=== PATIENT | female | born 1970 | race African-American/Black ===

== ENCOUNTER 2020-10-20 01:50 | Emergency (ER) | payer MEDICARE ==
[2020-10-20] MEDS ORDERED: Sodium Chloride 0.9% 1,000 ML IV ONE (02:03)
[2020-10-20] MEDS ORDERED: Sodium Chloride 0.9% 10 ML Syringe FLUSH PRN (02:03)
[2020-10-20] MEDS ORDERED: Sodium Chloride 0.9% 2.5 ML Syringe FLUSH PRN (02:03)
[2020-10-20] MEDS ORDERED: cloNIDine 0.1 MG Tab PO ONE (02:04)
[2020-10-20] MEDS ORDERED: Meclizine 25 MG Tab PO ONE (02:06)
[2020-10-20] MEDS ORDERED: diphenhydrAMINE 50 MG/ML SDV IVPUSH ONE (02:06)
[2020-10-20] MEDS ORDERED: Prochlorperazine 10 MG in Sodium Chloride 0.9% 50 ML IV ONE (02:06)
[2020-10-20] MEDS ORDERED: Prochlorperazine 10 MG/2 ML SDV ONE (02:10)
[2020-10-20] MEDS ORDERED: Prochlorperazine 10 MG/2 ML SDV IVPUSH ONE (02:13)
--- NOTE | 2020-10-20 02:46 | CT ---
INDICATION: Vertigo TECHNIQUE: CT Head without i.v. contrast. Coronal and sagittal reformats were obtained. COMPARISON: None FINDINGS: CSF space: The ventricles are normal for age. Brain: No evidence of mass, acute infarction or hemorrhage is seen. No mass-effect or midline shift is seen. The brain parenchyma is otherwise normal in appearance with preservation of the rome-white matter junction. Calvarium: The visualized paranasal sinuses are well aerated. The mastoid air cells are clear. The visualized orbits are grossly unremarkable. The calvarium is unremarkable in appearance with no fractures identified. IMPRESSION: 1. No evidence of acute infarction, intracranial hemorrhage, or mass-effect seen. Please note that all CT scans at this facility use dose modulation, iterative reconstruction, and/or weight-based dosing when appropriate to reduce radiation dose to as low as reasonably achievable. Dictated by: Lenin Doty MD @ 10/20/2020 02:44:36 (Electronically Signed)
[2020-10-20 03:00] LABS: BLOOD UREA NITROGEN,BUN 20 mg/dL (7.0-18.0); CARBON DIOXIDE,CO2 28.2 mmol/L (21.0-32.0); CHLORIDE,CL 104 mmol/L (98-107); GLUCOSE RANDOM 107 mg/dL (74-106); POTASSIUM,K 4.1 mmol/L (3.5-5.1); SODIUM,NA 139 mmol/L (136-145)
--- NOTE | 2020-10-20 03:43 | EDM.PDOC ---
ED HPI GENERAL MEDICAL PROBLEM - General Chief Complaint: Cardiovascular Problem Stated Complaint: HEADACHE Time Seen by Provider: 10/20/20 03:24 - History of Present Illness INITIAL COMMENTS - FREE TEXT/NARRATIVE: HISTORY AND PHYSICAL: History of present illness: This is a 49-year-old female with a history significant for hypertension and vertigo who presents ER today complaining of recurrence of her vertigo. Patient reports that she sat up and felt the room was spinning. She reports that the spinning persisted which is typical of when she has inflammation in her inner ear. Patient came to the ER secondary to the sensation of nausea and vertigo. Patient denies any other symptomatology. Patient has any recent fevers, shakes, chills, vomiting, diarrhea, dysuria, frequency, urgency, chest pain, shortness of breath, lower extremity edema. Patient denies any calf tenderness or swelling. Patient reports she does have a history of a PE in the past. Patient reports that she does have a history of hypertension and is currently on 3 different medications. Patient reports that she has been compliant with her medications but it is always elevated. Patient reports her blood pressure fluctuates and that her doctor the been trying to control it. Patient denies any weakness to her upper or lower extremities. Patient denies any slurring her speech. Patient has any double vision. Patient denies any blurred vision. Review of systems: As per history of present illness and below otherwise all systems reviewed and negative. Past medical history: As per history of present illness and as reviewed below otherwise noncontributory. Surgical history: As per history of present illness and as reviewed below otherwise noncontributory. Social history: No reported history of drug or alcohol abuse. Family history: As per history of present illness and as reviewed below otherwise noncontributory. Physical exam: This patient was seen and evaluated during the 2019 SARS-CoV-2 novel coronavirus pandemic period. Community viral transmission is ongoing at time of this encounter and the emergency department is operating under pandemic response procedures. Constitutional: Patient is oriented to person, place, and time. Appears well- developed and well-nourished. No distress. HEENT: Moist mucous membranes Head: Normocephalic and atraumatic Eyes: Right eye exhibits no discharge. Left eye exhibits no discharge. No scleral icterus Neck: Normal range of motion. No tracheal deviation present. Cardiovascular: Normal rate and regular rhythm. Pulmonary: Effort normal, no respiratory distress. Abdominal: No distention Musculoskeletal: Normal range of motion Neurologic: Alert and oriented to person, place and time. Skin: [place], warm and dry. Psychiatric: Normal mood and affect. Behavior is normal. Judgment and thought content normal. Nursing note and vital signs have been reviewed Neuro: A&Ox3. Cranial nerves II-XII grossly intact, 5/5 strength to bilateral upper and lower extremities, sensation intact to bilateral upper and lower extremities, no nystagmus, PERRLA, EOMI, normal speech, proprioception intact to bilateral lower extremities, normal finger to nose test, gait normal. Patient's panic membranes are without any erythema, fluid, bulging. Diagnostics: CBC, CMP, troponin all within normal limits. CT of head without contrast normal EKG: As interpreted by ER physician: Gregory: Nonspecific ST-T wave abnormalities Normal axis No evidence of ST elevation MT Sinus tachycardia with a heart rate of 102 Therapeutics: Meclizine 25 mg p.o. Compazine 10 mg IV Benadryl 25 mg IV NSS x1 L Assessment and plan: This is a 49-year-old female who presents ER today secondary to vertigo. Patient reports that she has had similar episodes in the past. Patient reports that she has been told that she has inflammation in her ear to her ear whenever this occurs. Patient reports that the vertigo today is identical to prior episodes of her vertigo. Of note, upon arrival to the ED the patient's blood pressure was markedly elevated. Here in the ED the patient was given meclizine, Compazine, Benadryl and NSS to assist with her vertigo. Patient was also given clonidine 0.2 mg p.o. 3:30 AM: Upon reevaluation, the patient is resting comfortably and reports that her vertigo has completely resolved. Patient's labs and ER work-up is been unremarkable. Patient will be discharged home with a prescription for meclizine and instructions to follow-up with her primary care physician for further BP evaluation. Reassessment at the time of disposition demonstrates that the patient is in no acute distress. The patient has remained stable throughout the entire ED visit and is without objective evidence for acute process requiring urgent intervention or hospitalization. The patient is stable for discharge, counseling is provided as documented above, discussed symptomatic treatment and specific conditions for return. I have spoken with the patient/caregiver and discussed todays findings, in addition to providing specific details for the plan of care. Questions are answered and there is agreement with the plan. Definitive disposition and diagnosis as appropriate pending reevaluation and review of above. head area Pain Score (Numeric/FACES): 1 - Related Data Allergies Allergy/AdvReac Type Severity Reaction Status Date / Time No Known Allergies Allergy Verified 10/20/20 01:58 Home Meds: Home Meds Bictegrav/Emtricit/Tenofov Ala [Biktarvy 50-200-25 mg Tablet] 1 tab PO DAILY 10/20/20 [History] Meclizine [Antivert] 25 mg PO TID PRN #20 tab 10/20/20 [Rx] Past Medical History - Infectious Disease History Infectious Disease History: Reports: HIV-Human Immunodeficiency Virus - Past Surgical History GI Surgical History: Reports: Cholecystectomy Female Surgical History: Reports: Hysterectomy Social & Family History - Tobacco Use Tobacco Use Status *Q: Never Tobacco User - Recreational Drug Use Recreational Drug Use: No ED ROS GENERAL - Review of Systems Review Of Systems: See Below ED EXAM, GENERAL - Physical Exam Exam: See Below Course - Vital Signs Last Recorded V/S: Last Vital Signs Temp 97.6 F 10/20/20 03:57 Pulse 85 10/20/20 03:57 Resp 18 10/20/20 03:57 BP 119/60 10/20/20 03:57 Pulse Ox 97 10/20/20 03:57 - Orders/Labs/Meds Orders: Active Orders 24 hr Category Date Time Status Saline Lock Insert [OM.PC] Stat Oth 10/20/20 02:03 Ordered Labs: Laboratory Tests 10/20/20 10/20/20 Range/Units 02:10 02:10 WBC 5.52 (4.0-11.0) K/uL RBC 4.60 (4.30-5.90) M/uL Hgb 14.5 (12.0-16.0) g/dL Hct 42.2 (36.0-46.0) % MCV 91.7 (80.0-98.0) fL MCH 31.5 (27.0-32.0) pg MCHC 34.4 (31.0-37.0) g/dL RDW Std Deviation 40.9 (28.0-62.0) fl RDW Coeff of Alexa 12 (11.0-15.0) % Plt Count 217 (150-400) K/uL MPV 11.70 (7.40-12.00) fL Neut % (Auto) 47.8 L (48.0-80.0) % Lymph % (Auto) 39.5 (16.0-40.0) % [place] % (Auto) 9.8 (0.0-15.0) % Eos % (Auto) 2.5 (0.0-7.0) % Baso % (Auto) 0.4 (0.0-1.5) % Neut # (Auto) 2.6 (1.4-5.7) K/uL Lymph # (Auto) 2.2 (0.6-2.4) K/uL [place]igo # (Auto) 0.5 (0.0-0.8) K/uL Eos # (Auto) 0.1 (0.0-0.7) K/uL Baso # (Auto) 0.0 (0.0-0.1) K/uL Sodium 139 (136-145) mmol/L Potassium 4.1 (3.5-5.1) mmol/L Chloride 104 (98-107) mmol/L Carbon Dioxide 28.2 (21.0-32.0) mmol/L BUN 20 H (7.0-18.0) mg/dL Creatinine 1.2 H (0.6-1.0) mg/dL Est Cr Clr Drug Dosing 59.27 mL/min Estimated GFR (MDRD) 57.9 ml/min Glucose 107 H (74-106) mg/dL Calcium 9.2 (8.5-10.1) mg/dL Total Bilirubin 0.3 (0.2-1.0) mg/dL AST 16 (15-37) IU/L ALT 20 (14-63) IU/L Alkaline Phosphatase 70 (46-116) U/L Troponin I < 0.050 (0.000-0.056) ng/mL Total Protein 8.1 (6.4-8.2) g/dL Albumin 3.7 (3.4-5.0) g/dL Globulin 4.4 H (2.6-4.0) g/dL Albumin/Globulin Ratio 0.8 L (0.9-1.6) Meds: Medications Discontinued Medications Generic Name Dose Route Start Last Admin Trade Name Freq PRN Reason Stop Dose Admin Clonidine HCl 0.2 mg 10/20/20 02:04 10/20/20 02:11 Clonidine 0.1 Mg Tab PO 10/20/20 02:05 0.2 mg ONETIME ONE Administration Diphenhydramine HCl 25 mg 10/20/20 02:06 10/20/20 02:12 Diphenhydramine 50 Mg/Ml Sdv IVPUSH 10/20/20 02:07 25 mg ONETIME ONE Administration Sodium Chloride 1,000 mls @ 999 mls/hr 10/20/20 02:03 10/20/20 02:13 Normal Saline IV 10/20/20 03:03 999 mls/hr .Bolus ONE Administration Prochlorperazine Edisylate 10 52 mls @ 150 mls/hr 10/20/20 02:06 10/20/20 02:14 mg/ Sodium Chloride IV 10/20/20 02:26 Not Given ONETIME ONE Meclizine HCl 25 mg 10/20/20 02:06 10/20/20 02:12 Meclizine 25 Mg Tab PO 10/20/20 02:07 25 mg ONETIME ONE Administration Prochlorperazine Edisylate Confirm 10/20/20 02:10 10/20/20 02:14 Prochlorperazine 10 Mg/2 Ml Sdv Administered 10/20/20 02:11 Not Given Dose 10 mg .ROUTE .STK-MED ONE Prochlorperazine Edisylate 10 mg 10/20/20 02:13 10/20/20 02:13 Prochlorperazine 10 Mg/2 Ml Sdv IVPUSH 10/20/20 02:14 10 mg ONETIME ONE Administration Sodium Chloride 10 ml 10/20/20 02:03 10/20/20 02:12 Sodium Chloride 0.9% 10 Ml Syringe FLUSH 10 ml ASDIRECTED PRN Administration Keep Vein Open Sodium Chloride 2.5 ml 10/20/20 02:03 10/20/20 02:12 Sodium Chloride 0.9% 2.5 Ml Syringe FLUSH 2.5 ml ASDIRECTED PRN Administration Keep Vein Open Departure - Departure Time of Disposition: 03:41 Disposition: Home, Self-Care 01 Condition: Good Clinical Impression: Hypertension, Vertigo Prescriptions: Meclizine [Antivert] 25 mg PO TID PRN #20 tab PRN Reason: Dizziness Instructions: Vertigo, Managing Your Hypertension, Hypertension, Adult Referrals: PCP,None [Primary Care Provider] - Forms: ED Department Discharge Additional Instructions: You were seen and evaluated in the ER today secondary to vertigo. Your blood pressure is also noted to be markedly elevated. In the ED you were given clonidine to assist your blood pressure and that appears to have significantly improved your blood pressure while you have been here. We have also treated your vertigo in the ER with meclizine, Compazine, Benadryl, and IV fluids. At this time, it appears that your vertigo has significantly improved with the medications and with improvement in your blood pressure. The blood tests and CT scan that we have obtained were all within normal limits. Please make an appointment to see your doctor within the next week for reevaluation of your blood pressure and symptoms. You will be sent home with a prescription for meclizine 25 mg to take 3 times a day as needed for vertigo. The following information is given to patients seen in the emergency department who are being discharged to home. This information is to outline your options for follow-up care. We provide all patients seen in our emergency department with a follow-up referral. The need for follow-up, as well as the timing and circumstances, are variable depending upon the specifics of your emergency department visit. If you don't have a primary care physician on staff, we will provide you with a referral. We always advise you to contact your personal physician following an emergency department visit to inform them of the circumstance of the visit and for follow-up with them and/or the need for any referrals to a consulting specialist. The emergency department will also refer you to a specialist when appropriate. This referral assures that you have the opportunity for follow-up care with a specialist. All of these measure are taken in an effort to provide you with optimal care, which includes your follow-up. Under all circumstances we always encourage you to contact your private physician who remains a resource for coordinating your care. When calling for follow-up care, please make the office aware that this follow-up is from your recent emergency room visit. If for any reason you are refused follow-up, please contact the [facility] Emergency Department at and asked to speak to the emergency department charge nurse. [facility] [address] [place] [address] [facility] [address] [place] [address] Sepsis Event Note (ED) - Evaluation Sepsis Screening Result: No Definite Risk - Focused Exam Vital Signs: Vital Signs Temp Pulse Resp BP BP Pulse Ox 10/20/20 03:57 97.6 F 85 18 119/60 97 10/20/20 03:24 90 18 111/66 95 10/20/20 02:38 99 201/113 H 97 10/20/20 02:11 93 178/97 H 178/97 H 97 10/20/20 02:03 106 H 208/118 H 100 10/20/20 01:56 97.7 F 102 H 18 223/140 H 98 - My Orders Last 24 Hours: My Active Orders 10/20/20 02:03 Saline Lock Insert [OM.PC] Stat - Assessment/Plan Last 24 Hours: My Active Orders 10/20/20 02:03 Saline Lock Insert [OM.PC] Stat
== END 2020-10-20 03:57 | disposition home or self-care (01) ==
LOC: MW.ED 01:50
DX: I10 Essential (primary) hypertension (principal); R00.0 Tachycardia, unspecified; B20 Human immunodeficiency virus [HIV] disease; Z79.899 Other long term (current) drug therapy
CPT/HCPCS: 36415; 70450; 80053; 84484; 85025; 93005; 96374; 96375; 99284; A9270; J0780; J1200; J7030; 93010; 99283

== ENCOUNTER 2020-12-29 08:42 | Emergency (ER) | payer MEDICARE ==
[2020-12-29] MEDS ORDERED: Ketorolac 15 MG/ML SDV IVPUSH ONE (09:16)
[2020-12-29] MEDS ORDERED: Sodium Chloride 0.9% 2.5 ML Syringe FLUSH PRN (09:16)
[2020-12-29] MEDS ORDERED: Ondansetron 4 MG/2 ML SDV IVPUSH ONE (09:16)
[2020-12-29] MEDS ORDERED: Sodium Chloride 0.9% 10 ML Syringe FLUSH PRN (09:16)
[2020-12-29] MEDS ORDERED: Sodium Chloride 0.9% 1,000 ML IV ONE (09:16)
[2020-12-29 09:41] LABS: BLOOD UREA NITROGEN,BUN 17 mg/dL (7.0-18.0); CARBON DIOXIDE,CO2 28.3 mmol/L (21.0-32.0); CHLORIDE,CL 104 mmol/L (98-107); GLUCOSE RANDOM 122 mg/dL (74-106); LIPASE 69 U/L (73-393); POTASSIUM,K 4.1 mmol/L (3.5-5.1); SODIUM,NA 139 mmol/L (136-145)
--- NOTE | 2020-12-29 11:01 | CT ---
INDICATION: Right upper quadrant pain. Status post cholecystectomy. TECHNIQUE: CT abdomen and pelvis without contrast. COMPARISON: None. FINDINGS: Lower chest: Normal heart size. No pericardial effusion. Coronary artery calcifications are noted. Mild elevation of the right hemidiaphragm. Liver: Unenhanced liver appears unremarkable. Spleen: Normal in size. Pancreas: Unenhanced pancreas appears unremarkable. Gallbladder and bile ducts: Cholecystectomy. No significant bile duct dilatation. Kidneys: Unenhanced kidneys appear unremarkable. Specifically, no urinary tract stones or hydroureteronephrosis. Adrenal glands: No adrenal mass or hemorrhage. GI tract: No abnormally dilated bowel to suggest obstruction. Appendix is normal. Vascular structures: Atherosclerotic changes. Normal caliber abdominal aorta. Lymph nodes: No pathologically enlarged lymph nodes are identified. Miscellaneous: No free air. No free fluid. Pelvic Organs: Unremarkable urinary bladder. Hysterectomy. No appreciable adnexal mass. Bones: No acute abnormality. Right proximal femur hardware is partially visualized. L5-S1 disc degeneration. IMPRESSION: 1. No CT evidence of an acute abnormality in the abdomen or pelvis on this unenhanced study. 2. Nonacute findings as noted. Dictated by Scott Garcia MD @ 12/29/2020 11:00:27 AM Please note that all CT scans at this facility use dose modulation, iterative reconstruction, and/or weight-based dosing when appropriate to reduce radiation dose to as low as reasonably achievable. Dictated by: Scott Garcia MD @ 12/29/2020 11:01:00 (Electronically Signed)
--- NOTE | 2020-12-29 11:09 | EDM.PDOC ---
ED HPI GENERAL MEDICAL PROBLEM - General Chief Complaint: Abdominal Pain Stated Complaint: R SIDE PAIN Time Seen by Provider: 12/29/20 09:09 - History of Present Illness INITIAL COMMENTS - FREE TEXT/NARRATIVE: HISTORY AND PHYSICAL: History of present illness: This is a 50-year-old female with a history significant for HIV, status post cholecystectomy who is currently on antiretroviral medications who presents ER today complaining of pain to her right upper quadrant and concerned about her liver. Patient has any recent fevers, shakes, chills, nausea, vomiting, diarrhea, dysuria, frequency, urgency, change in her stool colors. Patient has any melena or bright red blood per rectum. Patient reports that she has been tolerating p.o. solids and liquids well. Patient denies any hematuria or urinary symptoms. Review of systems: As per history of present illness and below otherwise all systems reviewed and negative. Past medical history: As per history of present illness and as reviewed below otherwise noncontribut ory. Surgical history: As per history of present illness and as reviewed below otherwise noncontributory. Social history: No reported history of drug abuse. Family history: As per history of present illness and as reviewed below otherwise noncontributory. Physical exam: This patient was seen and evaluated during the 2019 SARS-CoV-2 novel coronavirus pandemic period. Community viral transmission is ongoing at time of this encounter and the emergency department is operating under pandemic response procedures. Constitutional: Patient is oriented to person, place, and time. Appears well- developed and well-nourished. No distress. HEENT: Moist mucous membranes Head: Normocephalic and atraumatic Eyes: Right eye exhibits no discharge. Left eye exhibits no discharge. No scleral icterus Neck: Normal range of motion. No tracheal deviation present. Cardiovascular: Normal rate and regular rhythm. Pulmonary: Effort normal, no respiratory distress. Abd: Soft, nondistended, no rebound/guarding, no psoas or obturator signs, no tenderness at Mcberney's point, no Lowe's sign. Pt does not present with an exam that would be consistent with an acute surgical abdomen at this time, minimal tenderness palpation right upper quadrant Musculoskeletal: Normal range of motion Neurologic: Alert and oriented to person, place and time. Skin: [place], warm and dry. Psychiatric: Normal mood and affect. Behavior is normal. Judgment and thought content normal. Nursing note and vital signs have been reviewed Diagnostics: CT scan of the abdomen pelvis without contrast reveals no evidence of acute abnormality in the abdomen pelvis. CBC, CMP, urinalysis all within normal limits. Therapeutics: Toradol 15 mg IV with patient reporting significant relief in her pain and discomfort. Assessment and plan: 50-year-old female with a history of HIV status post cholecystectomy who presents ER today complaining of right upper quadrant abdominal pain. Patient's ER work-up is been unremarkable. Patient's pain has improved significantly with the Toradol given in the ED. I have instructed the patient about dietary changes including a bland diet for the next 2 to 3 days and follow-up with her primary care physician for further evaluation. Reassessment at the time of disposition demonstrates that the patient is in no acute distress. The patient has remained stable throughout the entire ED visit and is without objective evidence for acute process requiring urgent intervention or hospitalization. The patient is stable for discharge, counseling is provided as documented above, discussed symptomatic treatment and specific conditions for return. I have spoken with the patient/caregiver and discussed todays findings, in addition to providing specific details for the plan of care. Questions are answered and there is agreement with the plan. Definitive disposition and diagnosis as appropriate pending reevaluation and review of above. RUQ Pain Score (Numeric/FACES): 8 - Related Data Allergies Allergy/AdvReac Type Severity Reaction Status Date / Time No Known Allergies Allergy Verified 12/29/20 09:42 Home Meds: Home Meds Bictegrav/Emtricit/Tenofov Ala [Biktarvy 50-200-25 mg Tablet] 1 tab PO DAILY 10/20/20 [History] Meclizine [Antivert] 25 mg PO TID PRN #20 tab 10/20/20 [Rx] Past Medical History - Infectious Disease History Infectious Disease History: Reports: HIV-Human Immunodeficiency Virus - Past Surgical History GI Surgical History: Reports: Cholecystectomy Female Surgical History: Reports: Hysterectomy ED ROS GENERAL - Review of Systems Review Of Systems: See Below ED EXAM, GENERAL - Physical Exam Exam: See Below Course - Vital Signs Last Recorded V/S: Last Vital Signs Temp 98.4 F 12/29/20 09:15 Pulse 80 12/29/20 09:15 Resp 16 12/29/20 09:15 BP 184/105 H 12/29/20 09:15 Pulse Ox 97 12/29/20 09:15 - Orders/Labs/Meds Orders: Active Orders 24 hr Category Date Time Status Sodium Chloride 0.9% [Saline Flush] Med 12/29/20 09:16 Active 10 ml FLUSH ASDIRECTED PRN Sodium Chloride 0.9% [Saline Flush] Med 12/29/20 09:16 Active 2.5 ml FLUSH ASDIRECTED PRN Saline Lock Insert [OM.PC] Stat Oth 12/29/20 09:16 Ordered Medication Orders Sodium Chloride (Sodium Chloride 0.9% 10 Ml Syringe) 10 ml FLUSH ASDIRECTED PRN PRN Reason: Keep Vein Open Last Admin: 12/29/20 09:39 Dose: 10 ml Documented by: PATTI Sodium Chloride (Sodium Chloride 0.9% 2.5 Ml Syringe) 2.5 ml FLUSH ASDIRECTED PRN PRN Reason: Keep Vein Open Last Admin: 12/29/20 09:39 Dose: 2.5 ml Documented by: PATTI Labs: Laboratory Tests 12/29/20 12/29/20 12/29/20 Range/Units 09:03 09:13 09:13 WBC 5.39 (4.0-11.0) K/uL RBC 4.84 (4.30-5.90) M/uL Hgb 15.4 (12.0-16.0) g/dL Hct 45.3 (36.0-46.0) % MCV 93.6 (80.0-98.0) fL MCH 31.8 (27.0-32.0) pg MCHC 34.0 (31.0-37.0) g/dL RDW Std Deviation 45.6 (28.0-62.0) fl RDW Coeff of Alexa 13 (11.0-15.0) % Plt Count 217 (150-400) K/uL MPV 11.60 (7.40-12.00) fL Neut % (Auto) 51.2 (48.0-80.0) % Lymph % (Auto) 37.1 (16.0-40.0) % [place] % (Auto) 10.0 (0.0-15.0) % Eos % (Auto) 1.5 (0.0-7.0) % Baso % (Auto) 0.2 (0.0-1.5) % Neut # (Auto) 2.8 (1.4-5.7) K/uL Lymph # (Auto) 2.0 (0.6-2.4) K/uL [place] # (Auto) 0.5 (0.0-0.8) K/uL Eos # (Auto) 0.1 (0.0-0.7) K/uL Baso # (Auto) 0.0 (0.0-0.1) K/uL Nucleated RBC % 0.0 /100WBC Nucleated RBCs # 0 K/uL Sodium 139 (136-145) mmol/L Potassium 4.1 (3.5-5.1) mmol/L Chloride 104 (98-107) mmol/L Carbon Dioxide 28.3 (21.0-32.0) mmol/L BUN 17 (7.0-18.0) mg/dL Creatinine 1.1 H (0.6-1.0) mg/dL Est Cr Clr Drug Dosing TNP Estimated GFR (MDRD) > 60.0 ml/min Glucose 122 H (74-106) mg/dL Calcium 9.5 (8.5-10.1) mg/dL Total Bilirubin 0.4 (0.2-1.0) mg/dL AST 16 (15-37) IU/L ALT 23 (14-63) IU/L Alkaline Phosphatase 76 (46-116) U/L Total Protein 8.8 H (6.4-8.2) g/dL Albumin 3.9 (3.4-5.0) g/dL Globulin 4.9 H (2.6-4.0) g/dL Albumin/Globulin Ratio 0.8 L (0.9-1.6) Lipase 69 L (73-393) U/L Urine Color YELLOW Urine Appearance CLEAR Urine pH 6.0 (5.0-8.0) Ur Specific [place] 1.025 (1.001-1.035) Urine Protein NEGATIVE (NEGATIVE) mg/dL Urine Glucose (UA) NEGATIVE (NEGATIVE) mg/dL Urine Ketones NEGATIVE (NEGATIVE) mg/dL Urine Occult Blood NEGATIVE (NEGATIVE) Urine Nitrite NEGATIVE (NEGATIVE) Urine Bilirubin NEGATIVE (NEGATIVE) Urine Urobilinogen 0.2 (<2.0) EU/dL Ur Leukocyte Esterase NEGATIVE (NEGATIVE) Meds: Medications Generic Name Dose Route Start Last Admin Trade Name Miguelq PRN Reason Stop Dose Admin Sodium Chloride 10 ml 12/29/20 09:16 12/29/20 09:39 Sodium Chloride 0.9% 10 Ml Syringe FLUSH 10 ml ASDIRECTED PRN Administration Keep Vein Open Sodium Chloride 2.5 ml 12/29/20 09:16 12/29/20 09:39 Sodium Chloride 0.9% 2.5 Ml Syringe FLUSH 2.5 ml ASDIRECTED PRN Administration Keep Vein Open Discontinued Medications Generic Name Dose Route Start Last Admin Trade Name Wyatt PRN Reason Stop Dose Admin Sodium Chloride 1,000 mls @ 999 mls/hr 12/29/20 09:16 12/29/20 09:39 Normal Saline IV 12/29/20 10:16 999 mls/hr .Bolus ONE Administration Ketorolac Tromethamine 15 mg 12/29/20 09:16 12/29/20 09:40 Ketorolac 15 Mg/Ml Sdv IVPUSH 12/29/20 09:17 15 mg ONETIME ONE Administration Ondansetron HCl 4 mg 12/29/20 09:16 12/29/20 09:40 Ondansetron 4 Mg/2 Ml Sdv IVPUSH 12/29/20 09:17 4 mg ONETIME ONE Administration Departure - Departure Time of Disposition: 11:08 Disposition: Home, Self-Care 01 Condition: Good Clinical Impression: Abdominal pain Qualifiers: Abdominal location: right upper quadrant Qualified Code(s): R10.11 - Right upper quadrant pain - Discharge Information Instructions: Abdominal Pain, Adult, [id number] Referrals: PCP,Not In Area [Primary Care Provider] - Additional Instructions: Your seen and evaluated in the ER today secondary to pain to your right upper quadrant. Your CT scan was normal as well as all your blood test results. Please maintain a bland diet for the next 2 to 3 days. Please make an appointment to see your family doctor next week if your symptoms do not completely resolve. The following information is given to patients seen in the emergency department who are being discharged to home. This information is to outline your options for follow-up care. We provide all patients seen in our emergency department with a follow-up referral. The need for follow-up, as well as the timing and circumstances, are variable depending upon the specifics of your emergency department visit. If you don't have a primary care physician on staff, we will provide you with a referral. We always advise you to contact your personal physician following an emergency department visit to inform them of the circumstance of the visit and for follow-up with them and/or the need for any referrals to a consulting specialist. The emergency department will also refer you to a specialist when appropriate. This referral assures that you have the opportunity for follow-up care with a specialist. All of these measure are taken in an effort to provide you with optimal care, which includes your follow-up. Under all circumstances we always encourage you to contact your private physician who remains a resource for coordinating your care. When calling for follow-up care, please make the office aware that this follow-up is from your recent emergency room visit. If for any reason you are refused follow-up, please contact the [facility] Emergency Department at and asked to speak to the emergency department charge nurse. [facility] [address] [place] [id number] [facility] [address] [place] [id number] Sepsis Event Note (ED) - Evaluation Sepsis Screening Result: No Definite Risk - Focused Exam Vital Signs: Vital Signs Temp Pulse Resp BP Pulse Ox 12/29/20 09:15 98.4 F 80 16 184/105 H 97 - My Orders Last 24 Hours: My Active Orders 12/29/20 09:16 Sodium Chloride 0.9% [Saline Flush] 10 ml FLUSH ASDIRECTED PRN Sodium Chloride 0.9% [Saline Flush] 2.5 ml FLUSH ASDIRECTED PRN Saline Lock Insert [OM.PC] Stat - Assessment/Plan Last 24 Hours: My Active Orders 12/29/20 09:16 Sodium Chloride 0.9% [Saline Flush] 10 ml FLUSH ASDIRECTED PRN Sodium Chloride 0.9% [Saline Flush] 2.5 ml FLUSH ASDIRECTED PRN Saline Lock Insert [OM.PC] Stat
== END 2020-12-29 11:26 | disposition home or self-care (01) ==
LOC: MW.ED 08:42
DX: R10.11 Right upper quadrant pain (principal); B20 Human immunodeficiency virus [HIV] disease
CPT/HCPCS: 74176; 80053; 81003; 83690; 85025; 96374; 96375; 99284; J1885; J2405; J7030